=== PATIENT | male | born 1990 | race Caucasian/White ===

== ENCOUNTER → 2021-09-20 10:09 | Outpatient (CLI) | payer SELFPAY, OTHER ==
--- NOTE | 2021-09-20 10:25 | ECHOD_ITS ---
Reason For Study: Arrhythmia Procedure This was a 2D Doppler, Color Flow transthoracic echocardiogram. Exam performed in department. Left Ventricle Normal LV size. Left ventricular systolic function is normal. The estimated ejection fraction is 60 %. Stage 1 diastolic dysfunction. No regional wall motion abnormalities noted. Right Ventricle Normal RV size. Normal systolic function. Atria Normal left atrium. Normal right atrium. Mitral Valve Normal mitral valve. Tricuspid Valve Normal tricuspid valve. Aortic Valve Normal aortic valve. Trisinus/trileaflet aortic valve. Pulmonic Valve Normal pulmonic valve. Great Vessels Normal aortic root. The pulmonary artery is normal size. Normal inferior vena cava. Pericardium/Pleural No pericardial effusion. MMode/2D Measurements & Calculations LVIDd: 4.6 cm IVSd: 1.1 cm LA dimension: 3.4 cm LVIDs: 3.1 cm LVPWd: 0.99 cm FS: 32.1 % LAV(MOD-bp): 31.1 ml LA A4 area: 11.7 cm2 RA A4 area: 17.2 cm2 LAV(MOD-bp) Indexed: 15.0 ml/m2 LAV(MOD-sp2): 31.3 ml LAV(MOD-sp4): 26.9 ml Time Measurements MV dec time: 0.25 sec Doppler Measurements & Calculations MV E max gaudencio: 57.4 cm/sec Lat Peak E' Gaudencio: 12.4 cm/sec Med Peak E' Gaudencio: 7.6 cm/sec MV A max gaudencio: 62.0 cm/sec E/E' lat: 4.6 E/E' med: 7.5 MV E/A: 0.93 MV V2 max: 66.8 cm/sec MV P1/2t max gaudencio: 55.1 cm/sec Ao V2 max: 88.7 cm/sec MV max P.8 mmHg MV P1/2t: 74.2 msec Ao max P.1 mmHg MV V2 mean: 38.8 cm/sec MV dec slope: 217.4 cm/sec2 MV mean P.69 mmHg MVA(P1/2t): 3.0 cm2 MV V2 VTI: 15.5 cm LV V1 max: 81.2 cm/sec PA V2 max: 101.1 cm/sec LV V1 max P.6 mmHg ECHO/Echo Complete Interpretation Summary Normal LV size. Left ventricular systolic function is normal. The estimated ejection fraction is 60 %. Stage 1 diastolic dysfunction. Structurally normal valves. Ordering Physician: Jefferson Calvert Referring Physician: Chris Wells Performed By: Mando Disla [facility]
== END ==
PROVIDERS: PCP Family Medicine; Referring Provider Internal Medicine Cardiovascular Disease; Visit Provider Internal Medicine Cardiovascular Disease
DX: R07.9 Chest pain, unspecified (principal)
CPT/HCPCS: 93306